=== PATIENT | male | born 2000 | race Caucasian/White ===

== ENCOUNTER 2020-02-07 21:33 | Emergency (ER) | payer SELFPAY ==
[~2020-02-07] VITALS: Ht 168 cm; Wt 70.0 kg
[~2020-02-07 21:33] MED LIST: METH36TA11 PO
[2020-02-08] MEDS ORDERED: CEPH-507 PO (00:49)
== END 2020-02-07 21:45 | disposition left against medical advice (07) ==
LOC: EDUNIT# 21:33 → ER 21:35
DX: S01.81XA Laceration without foreign body of other part of head, initial encounter (principal); X58.XXXA Exposure to other specified factors, initial encounter
CPT/HCPCS: 99282

== ENCOUNTER 2020-02-08 00:15 | Emergency (ER) | payer SELFPAY ==
[~2020-02-08] VITALS: Ht 165 cm; Wt 70.0 kg
[2020-02-08] MEDS ORDERED: TETANUS,DIPTH,PERTUSS P/F (BOOSTRIX) 0.5 ML VIAL IM ONE (00:30)
[2020-02-08] MEDS ORDERED: LIDOCAINE/EPI 2% 1:100,00 (XYLOCAINE) 20 ML VIAL INJ ONE (00:30)
[2020-02-08] MEDS ORDERED: CEPH-507 PO (00:49)
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
[2020-02-08] MEDS ORDERED: CEPHALEXIN 250 MG (KEFLEX) CAP PO ONE ×2 (00:51→01:00)
== END 2020-02-08 00:58 | disposition home or self-care (01) ==
LOC: EDUNIT# 00:15 → ER 00:20
DX: S09.90XA Unspecified injury of head, initial encounter (principal); S01.01XA Laceration without foreign body of scalp, initial encounter; S50.311A Abrasion of right elbow, initial encounter; F17.210 Nicotine dependence, cigarettes, uncomplicated; R40.2142 Coma scale, eyes open, spontaneous, at arrival to emergency department; R40.2252 Coma scale, best verbal response, oriented, at arrival to emergency department; R40.2362 Coma scale, best motor response, obeys commands, at arrival to emergency department; Z23 Encounter for immunization; Y00.XXXA Assault by blunt object, initial encounter
CPT/HCPCS: 12002; 90715

== ENCOUNTER 2021-09-10 16:42 | Emergency (ER) | payer SELFPAY ==
[~2021-09-10] VITALS: Ht 177 cm; Wt 77.0 kg
[~2021-09-10 16:42] MED LIST changes: +CEPH-507 PO
[2021-09-10 17:02] VITALS: BP 129/105
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
[2021-09-10] MEDS ORDERED: LIDOCAINE 1% INJ 20 ML VIAL INJ ONE (17:30)
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
[2021-09-10] MEDS ORDERED: CEPH500T PO (19:04)
== END 2021-09-10 18:24 | disposition left against medical advice (07) ==
LOC: EDUNIT# 16:42 → ER 16:44
DX: S01.01XA Laceration without foreign body of scalp, initial encounter (principal); S60.519A Abrasion of unspecified hand, initial encounter; F17.210 Nicotine dependence, cigarettes, uncomplicated; W22.8XXA Striking against or struck by other objects, initial encounter
CPT/HCPCS: 12032; 70450; 70486; 72125